=== PATIENT | female | born 2000 | race Caucasian/White ===

== ENCOUNTER 2018-06-13 19:38 | Emergency (ER) | payer BC ==
[~2018-06-13] VITALS: Ht 160 cm; Wt 54.5 kg
[2018-06-13 19:43] VITALS: BP 127/62; PULSE 82; TEMP 97.4
[2018-06-13] MEDS ORDERED: ZITHROMAX TRI-500 MG PO (21:01)
== END 2018-06-13 21:27 | disposition home or self-care (01) ==
LOC: COL.ER 19:38
DX: J06.9 Acute upper respiratory infection, unspecified (principal)

== ENCOUNTER 2018-09-07 14:17 | Emergency (ER) | payer BC ==
[~2018-09-07] VITALS: Ht 160 cm; Wt 54.5 kg
[~2018-09-07 14:17] MED LIST: ZITHROMAX TRI-500 MG PO
[2018-09-07 14:26] VITALS: TEMP 98.6
[2018-09-07 15:03] LABS: COLLECTION METHOD CLEAN CATCH
[2018-09-07 15:21] LABS: MUCOUS Present /lpf; PH 6 (5-8); URINE APPEARANCE Hazy; URINE BACTERIA None Seen /hpf; URINE BILIRUBIN Negative (NEGATIVE); URINE BLOOD 2+ (NEGATIVE); URINE COLOR Yellow; URINE GLUCOSE Negative (NEGATIVE); URINE KETONE Negative (NEGATIVE); URINE LEUKOCYTE ESTERASE 2+ (NEGATIVE); URINE NITRATE Negative (NEGATIVE); URINE PROTEIN(semi-quant) Negative (NEGATIVE); URINE UROBILINOGEN Negative (NEGATIVE)
[2018-09-07] MEDS ORDERED: CEPHALEXIN500 M1 PO (15:47)
[2018-09-07 16:25] LABS: BASO # 0.1 (0.0-0.2); BASO % 0.8 % (0.0-2.0); EOS # 0.3 (0.0-0.7); EOS % 2.7 % (0-4.0); GRAN # 5.3 (1.4-6.5); LYMPH # 2.8 (1.2-3.4); LYMPH % 30.7 % (20.0-51.0); MEAN CELL VOLUME 87 fl (80.0-95.0); MEAN CORPUSCULAR HEMOGLOBIN 29 pg (26.0-32.0); MEAN CORPUSCULAR HGB CONC 33 g/dl (33.0-37.0); MEAN PLATELET VOLUME 10.3 fl (7.4-10.4); MONO # 0.7 (0.1-0.6); MONO % 7.5 % (1.7-9.3); PLATELET COUNT 246 K/mm3 (130-400); RED BLOOD COUNT 4.82 M/mm3 (4.10-5.30); REDCELL DISTRIBUTION WIDTH-CV 12.9 % (11.5-14.5)
[2018-09-07 16:37] LABS: ALBUMIN 4.8 gm/dL (3.5-5.0); BILIRUBIN,TOTAL 0.6 mg/dL (0.0-1.0); CALCIUM 9.9 mg/dL (8.4-10.2); CREATININE, serum 0.67 (0.52-1.25); TOTAL PROTEIN 8.3 gm/dL (6.4-8.2)
[2018-09-07 17:07] VITALS: BP 104/56; PULSE 72
== END 2018-09-07 17:08 | disposition home or self-care (01) ==
LOC: COL.ER 14:17
PROVIDERS: Physician Assistant
DX: S29.9XXA Unspecified injury of thorax, initial encounter (principal); N39.0 Urinary tract infection, site not specified; W22.8XXA Striking against or struck by other objects, initial encounter
CPT/HCPCS: A9284